=== PATIENT | male | born 1950 | race Caucasian/White ===

== ENCOUNTER 2022-09-24 09:46 | Inpatient (IN) ==
--- NOTE | 2022-09-03 12:51 | PAT Medication Instructions ---
Medication Instructions Date of Service September 03, 2022 Home Medications acetaminophen 325 mg capsule (Tylenol) 500 mg PO UD PRN alogliptin 25 mg tablet 25 mg PO QAM aspirin 325 mg tablet (Magnus Aspirin) 325 mg PO QAM cholecalciferol (vitamin D3) 25 mcg (1,000 unit) tablet 50 mcg PO QDL coenzyme Q10 100 mg capsule 100 mg PO QAM duloxetine 30 mg capsule,delayed release sprinkle 90 mg PO QDL metformin 1,000 mg tablet 1,000 mg PO BID metoprolol tartrate 25 mg tablet 12.5 mg PO BID oxycodone 5 mg tablet 10 mg PO Q6H PRN pregabalin 75 mg capsule (Lyrica) 225 mg PO BID rosuvastatin 40 mg tablet 40 mg PO HS terazosin 2 mg capsule 4 mg PO HS tizanidine 2 mg capsule 2 mg PO UD PRN docusate sodium 100 mg tablet 100 mg PO QAM empagliflozin 10 mg tablet 10 mg PO QAM lisinopril 10 mg tablet 10 mg PO UD PRN STOP 3 days before surgery empagliflozin 10 mg tablet 10 mg PO QAM Continue as directed duloxetine 30 mg capsule,delayed release sprinkle 90 mg PO QDL (do not take day of surgery) ASK your prescriber and surgeon aspirin 325 mg tablet (Magnus Aspirin) 325 mg PO QAM STOP taking 2 weeks before surgery coenzyme Q10 100 mg capsule 100 mg PO QAM DO NOT take the morning of surgery alogliptin 25 mg tablet 25 mg PO QAM cholecalciferol (vitamin D3) 25 mcg (1,000 unit) tablet 50 mcg PO QDL metformin 1,000 mg tablet 1,000 mg PO BID docusate sodium 100 mg tablet 100 mg PO QAM lisinopril 10 mg tablet 10 mg PO UD PRN Take morning of surgery With a small sip of water, OTHERWISE NOTHING TO EAT OR DRINK AFTER MIDNIGHT: acetaminophen 325 mg capsule (Tylenol) 500 mg PO UD PRN(if needed) metoprolol tartrate 25 mg tablet 12.5 mg PO BID oxycodone 5 mg tablet 10 mg PO Q6H PRN(if needed) pregabalin 75 mg capsule (Lyrica) 225 mg PO BID Take evening before surgery metformin 1,000 mg tablet 1,000 mg PO BID metoprolol tartrate 25 mg tablet 12.5 mg PO BID oxycodone 5 mg tablet 10 mg PO Q6H PRN(if needed) pregabalin 75 mg capsule (Lyrica) 225 mg PO BID rosuvastatin 40 mg tablet 40 mg PO HS terazosin 2 mg capsule 4 mg PO HS tizanidine 2 mg capsule 2 mg PO UD PRN(if needed) Other Notes If you have any questions please call us at [phone] or [phone] or [phone] or [phone]
--- NOTE | 2022-09-06 11:00 | Anesthesiology Consultation ---
Date of Service September 06, 2022 Assessment & Plan (1) Encounter for pre-operative examination: Plan - optimization form sent to PCP regarding abnormal pre-op testing. PAT testing to be faxed to PCP. - cardiology pre-op evaluation 09/07/22 [facility]. - PCP pre-op evaluation 09/08/22 [facility]. He was advised to contact PCP office today ahead of upcoming appointment regarding symptoms and to call 911 for any new, changed or worsened symptoms. Patient and his verbalized understanding and agreement, denied questions or concerns. - check BSG am DOS. Chart Review Chart Review: Pending: Refer to Additional Notes / Consult section and Patient seen in Pre Admission Testing Teaching & Discussion Pre-Anesthesia Teaching/Discussion Notes: Instructed NPO after midnight before surgery, except medications with 15 cc of water. Medication instructions provided according to the PAT guidelines. History Surgery Operation Date: 09/20/22 10:05 Proposed Procedures p L3-L5 Decompression and Fusion, Spinal Cord Monitoring - Camron Herman, Height/Weight Height: 5 ft 7 in Weight: 73.6 kg Allergies Allergy/AdvReac Type Severity Reaction Status Date / Time adhesive tape Allergy Unknown unknown Verified 09/03/22 10:48 type of tape - welt carisoprodol [From Soma] Allergy Unknown pt unsure Verified 09/03/22 10:48 - doesn't remember cyclobenzaprine Allergy Unknown GI SYMPTOMS Verified 09/03/22 10:48 epinephrine Allergy Unknown SHORTNESS Verified 09/03/22 10:48 OF BREATH - see notes gemfibrozil Allergy Unknown pt doesn't Verified 09/03/22 10:48 remember gabapentin AdvReac Unknown pt doesn't Verified 09/03/22 10:48 remember ropinirole AdvReac Unknown pt doesn't Verified 09/03/22 10:48 remember Medications Home Medications Medication Instructions Recorded Confirmed Last Taken acetaminophen 325 mg capsule 500 mg PO UD PRN Pain 05/08/20 09/03/22 Unknown (Tylenol) alogliptin 25 mg tablet 25 mg PO QAM 05/08/20 09/03/22 Unknown aspirin 325 mg tablet (Magnus 325 mg PO QAM 05/08/20 09/03/22 Unknown Aspirin) cholecalciferol (vitamin D3) 25 50 mcg PO QDL 05/08/20 09/03/22 Unknown mcg (1,000 unit) tablet coenzyme Q10 100 mg capsule 100 mg PO QAM 05/08/20 09/03/22 Unknown duloxetine 30 mg capsule,delayed 90 mg PO QDL 05/08/20 09/03/22 Unknown release sprinkle metformin 1,000 mg tablet 1,000 mg PO BID 05/08/20 09/03/22 Unknown metoprolol tartrate 25 mg tablet 12.5 mg PO BID 05/08/20 09/03/22 Unknown oxycodone 5 mg tablet 10 mg PO Q6H PRN Pain 05/08/20 09/03/22 Unknown pregabalin 75 mg capsule (Lyrica) 225 mg PO BID 05/08/20 09/03/22 Unknown rosuvastatin 40 mg tablet 40 mg PO HS 05/08/20 09/03/22 Unknown terazosin 2 mg capsule 4 mg PO HS 05/08/20 09/03/22 Unknown tizanidine 2 mg capsule 2 mg PO UD PRN Sleep 05/08/20 09/03/22 Unknown docusate sodium 100 mg tablet 100 mg PO QAM 09/03/22 09/03/22 Unknown empagliflozin 10 mg tablet 10 mg PO QAM 09/03/22 09/03/22 Unknown lisinopril 10 mg tablet 10 mg PO UD PRN blood pressure 09/03/22 09/03/22 Unknown Past Medical History Medical History (Updated 09/06/22 @ 11:31 by Priya Donovan PA-C) BPH (benign prostatic hyperplasia) CAD (coronary artery disease) s/p CABG Diabetes NIDDM Elevated cholesterol Fibromyalgia History of colon polyps mentioned but didn't remove anything per pt - hx colonoscopy 6 mon ago History of myocardial infarction History of skin cancer multiple sites: anterior and posterior scalp, above left eyebrow [place] (hard of hearing) HTN (hypertension) controlled, stable per pt Lumbar radiculopathy Lumbar spinal stenosis Moderate at L3-L4 Severe at L4-5 Memory problem PT REPORTS HAS POOR MEMORY / COMMUNICATION EFFECTIVE FOR PAT PHONE CALL DENIES HX NEUROLOGIC DX SOB (shortness of breath) on exertion ambulates on flat surfaces due to back dysfunction, denies SOB with usual activities Patient denies h/o stroke, seizures, heart attack, blood clots or blood transfusions. Exercise / Class Metabolic Activity III < 4 Walking/Shop/Light housework (denies CP or SOB with usual activities) Past Family History Family History Mother Family history of diabetes mellitus Uncle Family history of diabetes mellitus Grandmother Family history of diabetes mellitus Past Surgical History Surgical History History of appendectomy History of cardiac cath 4 YR AGO...HX ID...CATH...CABG History of colonoscopy History of endoscopy History of tonsillectomy Hx of CABG Past Anesthesia History No Hx of Anesthesia Complications and Other (grandmother passed during an operation-pt notes poorly controlled DM and obesity hx) History of PONV No Hx of PONV and Hx of Motion Sickness Social History Smoking Status: Never smoker Do You Dip or Chew Tobacco: No Hx Alcohol Use: Yes (rare, several times a year) Hx Substance Use: No substance use type: does not use Review of Systems Pt states that today feels slight fatigue, slight nausea, occasional slight ( rated 1/10) right lower abdominal discomfort he cannot describe or select when given examples; states he has had similar episodes in the past similar to food poisoning. Denies any pain radiation, chest discomfort, shortness of breath, palpitations, vomiting, diaphoresis, dizziness, lightheadedness, fever, chills, headache, visual changes, numbness, or change in chronic LE weakness, jaw pain, reflux, heartburn, diarrhea, constipation, dysuria, hematuria, dyspnea, or change in chronic back pain. Patient denies snoring, witnessed apneas, cough, or wheezing. Physical Exam Vital Signs Vitals BP 152/89 P 92 TEMP 98.8 SP02 96% on RA RESP 17 Physical Resting in chair in NAD, alert and oriented, speaking clearly in full sentences without difficulty; nondiaphoretic Full cervical extension range of motion without pain TMD 3.5 finger breadths Mallampati Score 2 Dentition: full upper denture and lower partial; denies chipped or loose teeth Lungs: normal respiratory effort. Clear throughout to auscultation, no adventitious breath sounds Abdomen: normal in appearance, no distention or skin discoloration; normal bowel sounds throughout; supple, nontender to light palpation; 1/10 reported tenderness without evident discomfort to deep palpation of RLQ, no rebound tenderness Cardiac: regular rate and rhythm, no murmurs noted Carotid arteries: negative bruit bilat Lab Results Anesthesia Preop Results Results Anesthesia Widget: WBC 3.25 K/ul (4.8-10.8) L 09/06/22 Hgb 12.7 g/dl (14.0-18.0) L 09/06/22 Hct 39.1 % (40.1-51.0) L 09/06/22 Plt 130 K/uL (130-400) 09/06/22 Na 141 mmol/L (136-145) 09/06/22 K 3.6 mmol/L (3.5-5.1) 09/06/22 Cl 105 mmol/L (98-107) 09/06/22 CO2 28 mmol/L (21-32) 09/06/22 BUN 13 mg/dl (6-23) 09/06/22 Creat 0.86 mg/dl (0.6-1.4) 09/06/22 Glucose Level 155 mg/dl (70-99(Fasting)) H 09/06/22 PT 10.8 Seconds (9.0-12.0) 09/06/22 PTT 28.4 Seconds (21.0-31.0) 09/06/22 INR 1.0 (0.9-1.1) 09/06/22 HA1c 7.4 % (4.5-5.6) H 09/06/22 Urine Color Yellow 09/06/22 Urine Appearance Clear (Clear) 09/06/22 Urine pH 7.0 (4.5-7.5) 09/06/22 Urine Specific [place] 1.038 (1.000-1.030) H 09/06/22 Urine Protein 1+ (Negative) H 09/06/22 Urine Glucose (UA) 3+ (Negative) H 09/06/22 Urine Ketones Trace (Negative) H 09/06/22 Urine Blood Negative (Negative) 09/06/22 Urine Nitrite Negative (Negative) 09/06/22 Urine Bilirubin Negative (Negative) 09/06/22 Urine Urobilinogen Negative (Negative) 09/06/22 Urine Leukocyte Esterase Negative (Negative) 09/06/22 Urine WBC (Auto) 1-5 /hpf (0-5) 09/06/22 Urine RBC (Auto) 0-4 /hpf (0-4) 09/06/22 Urine Hyaline Casts (Auto) 0 /lpf (0-5) 09/06/22 Urine Epithelial Cells (Auto) 10-20 /lpf (0-5) H 09/06/22 Urine Bacteria (Auto) Negative (Negative) 09/06/22 Blood Type O Positive 09/06/22 Antibody Screen NEGATIVE 09/06/22 Testing Electrocardiogram Date: 09/06/22 NSR, rate 89 bpm Chest X-Ray Date: 09/06/22 No acute process. Echocardiogram Date: 02/26/19 EF 50-55% Mild tricuspid regurgitation Mildly thickened aortic valve, trivial aortic insufficiency Stress Test Date: 04/03/19 Exercise METS 4.6 MPHR 88% Negative for ischemia COVID-19 Risk Screen Screening Information COVID-19 Screen Date: 09/06/22 Exposure 21 Days Family/Household +COVID Last 21 Days: No Exposure 10 Days Any COVID Exposure Last 10 Days: No Symptoms Last 10 Days Experienced COVID Sx Last 10 Days: Yes + COVID 0-90 Days COVID + in Last 0-90 Days: No
[~2022-09-24 09:46] MED LIST: ACETAMINOPHEN 500 MG TAB PO SCH; ALLERGY Noted to ORDERED Medication SCH; CeleBREX 200 MG CAP PO SCH; HYDROmorphone INJ 2 MG/ML SYR/VIAL ONE; LR 15ML/HR IV SCH; MIDAZOLAM HCL 1 MG/ML 2ML VIAL ONE; ONDANSETRON INJ 2 MG/ML 2 ML VIAL ONE; PHENYLEPHRINE HCL 10 MG/ML VIAL ONE; ceFAZolin 2000MG 2,000 MG/15 ML SYR IV SCH; fentaNYL citrate 100 MCG/2 ML VIAL ONE
--- NOTE | 2022-09-24 09:46 | History & Physical Bridge Note ---
Date of Service September 24, 2022 History & Physical Bridge Note I have examined the patient, reviewed the History & Physical and in the interval since the performance of the History & Physical I have noted the following changes of clinical significance: no changes noted
--- NOTE | 2022-09-24 09:47 | History & Physical Report ---
Date of Service September 24, 2022 Assessment & Plan (1) Neurogenic claudication due to lumbar spinal stenosis: Plan: L3-L5 decompression and fusion, possible L5-S1 History of Present Illness Chief Complaint: Back and bilateral leg pain Primary Care Provider: Ramirez Martinez DO This is a 72-year-old male who presents with chronic persistent back and leg pain. After extensive course of nonoperative care is here for surgical intervention. Allergies Allergy/AdvReac Type Severity Reaction Status Date / Time adhesive tape Allergy Unknown unknown Verified 09/03/22 10:48 type of tape - welt carisoprodol [From Soma] Allergy Unknown pt unsure Verified 09/03/22 10:48 - doesn't remember cyclobenzaprine Allergy Unknown GI SYMPTOMS Verified 09/03/22 10:48 epinephrine Allergy Unknown SHORTNESS Verified 09/03/22 10:48 OF BREATH - see notes gemfibrozil Allergy Unknown pt doesn't Verified 09/03/22 10:48 remember gabapentin AdvReac Unknown pt doesn't Verified 09/03/22 10:48 remember ropinirole AdvReac Unknown pt doesn't Verified 09/03/22 10:48 remember Home Medications Medication Instructions Recorded Confirmed Type acetaminophen 325 mg capsule 500 mg PO UD PRN Pain 05/08/20 09/03/22 History (Tylenol) alogliptin 25 mg tablet 25 mg PO QAM 05/08/20 09/03/22 History aspirin 325 mg tablet (Magnus 325 mg PO QAM 05/08/20 09/03/22 History Aspirin) cholecalciferol (vitamin D3) 25 50 mcg PO QDL 05/08/20 09/03/22 History mcg (1,000 unit) tablet coenzyme Q10 100 mg capsule 100 mg PO QAM 05/08/20 09/03/22 History duloxetine 30 mg capsule,delayed 90 mg PO QDL 05/08/20 09/03/22 History release sprinkle metformin 1,000 mg tablet 1,000 mg PO BID 05/08/20 09/03/22 History metoprolol tartrate 25 mg tablet 12.5 mg PO BID 05/08/20 09/03/22 History oxycodone 5 mg tablet 10 mg PO Q6H PRN Pain 05/08/20 09/03/22 History pregabalin 75 mg capsule (Lyrica) 225 mg PO BID 05/08/20 09/03/22 History rosuvastatin 40 mg tablet 40 mg PO HS 05/08/20 09/03/22 History terazosin 2 mg capsule 4 mg PO HS 05/08/20 09/03/22 History tizanidine 2 mg capsule 2 mg PO UD PRN Sleep 05/08/20 09/03/22 History docusate sodium 100 mg tablet 100 mg PO QAM 09/03/22 09/03/22 History empagliflozin 10 mg tablet 10 mg PO QAM 09/03/22 09/03/22 History lisinopril 10 mg tablet 10 mg PO UD PRN blood pressure 09/03/22 09/03/22 History Past Med/Surg History Medical History (Updated 09/24/22 @ 09:47 by Camron Herman DO) BPH (benign prostatic hyperplasia) CAD (coronary artery disease) s/p CABG x 2017 Diabetes NIDDM Elevated cholesterol Fibromyalgia History of colon polyps mentioned but didn't remove anything per pt - hx colonoscopy 6 mon ago History of myocardial infarction History of skin cancer multiple sites: anterior and posterior scalp, above left eyebrow [place] (hard of hearing) HTN (hypertension) controlled, stable per pt Lumbar radiculopathy Lumbar spinal stenosis Moderate at L3-L4 Severe at L4-5 Memory problem PT REPORTS HAS POOR MEMORY / COMMUNICATION EFFECTIVE FOR PAT PHONE CALL DENIES HX NEUROLOGIC DX SOB (shortness of breath) on exertion ambulates on flat surfaces due to back dysfunction, denies SOB with usual activities Surgical History History of appendectomy History of cardiac cath 4 YR AGO...HX NH...CATH...CABG History of colonoscopy History of endoscopy History of tonsillectomy Hx of CABG Family History Mother Family history of diabetes mellitus Uncle Family history of diabetes mellitus Grandmother Family history of diabetes mellitus Social History Smoking Status: Unknown if ever smoked Do You Dip or Chew Tobacco: No; Hx Alcohol Use: Yes (rare, several times a year) Hx Substance Use: No Preferred Language: Uzbek Communication Ability: Effective Visual Impairment: No Limitations Hearing Ability: Normal Pediatric Oncology Nurse Required: No Beliefs That Will Affect Care: None marital status: Current Living Situation: Spouse current occupational status: retired Other Information That Helps Us Care for You: No Feels Safe at Home: Yes Assistive Devices: Cane, Denture - Upper, Denture - Lower and Glasses Physical Exam Physical Exam: Patient is alert and oriented Heart regular rhythm Lungs clear
[2022-09-24] MEDS ORDERED: BUPIVACAINE/EPINEPHRINE 0.25% 1:200,000 30 ML VIAL ONE (10:07)
[2022-09-24] MEDS ORDERED: ceFAZolin 330 MG/ML 1 GM VIAL ONE (10:07)
[2022-09-24] MEDS ORDERED: FLOSEAL HEMOSTATIC MATRIX 10ML TOP ONE (11:59)
[2022-09-24] MEDS ORDERED: fentaNYL citrate 100 MCG/2 ML VIAL ONE ×2 (12:33→14:12)
[2022-09-24] MEDS ORDERED: METOPROLOL TARTRATE 1 MG/ML VIAL IV ONE (13:23)
[2022-09-24] MEDS ORDERED: ESMOLOL HCL INJ 10 MG/ML 10ML VIAL IV ONE (13:23)
--- NOTE | 2022-09-24 13:26 | Operative Report ---
Post Operative Report Pre & Post Diagnosis Operation Date: 09/24/22 11:05 Pre-Op Diagnosis: Lumbar spinal stenosis with neurogenic claudication Post-Op Diagnosis: Same I identified the patient and participated in the time-out.: Yes Procedure Operation Date: 09/24/22 11:05 Actual Procedures #1 lumbar decompression with bilateral medial facetectomies and foraminotomies L2-L3, L3-L4 and L4-L5. #2 posterior spinal fusion L3-L4 L4-5. #3 placement posterior instrumentation L3-L4 L4-5. #4 interbody fusion L3-L4 L4-5. #5 placement of Spira 13 x 26 mm cage at L3-L4 and 14 x 26 mm cage at L4-5. #6 placement locally harvested morselized autograft in the posterior gutters. #7 placement of I factor combined with V toss interbody space and posterior lateral gutters. Surgeon Camron Herman DO Plastic Surgery Assistant Gabriel López Estimated Blood Loss 250 Findings Consistent with Post-Op Diagnosis Specimens None Indications This is a 72-year-old male who presents above-mentioned diagnosis and failing since course of nonoperative care is here for surgical invention. Description of Procedure Patient was met with identified informed consent obtained. Patient was then taken to the operative suite underwent a patient placed in a prone position on the [place] table top [place] frame. All bony prominences well-padded eyes inspected to ensure no external pressure placed upon the. This point the lumbar spine was prepped and draped in normal sterile fashion. Sharp dissection with t he assistance of Bovie cautery was performed down to and exposing the lamina and transverse processes of L3-L4 and L5 bilaterally. From caudal to cephalad fashion a complete laminectomy of L4 L3 and partial management of L2 was performed including bilateral medial facetectomies and foraminotomies addressing severe spinal stenosis. Pedicle screws then placed in L3-L4-L5 bilaterally with assistance of fluoroscopy and appropriate sized marco placed. By way of a transit foraminal approach on the left complete discectomy of L4-5 was performed endplates curetted to subcortically bone and a 14 x 26 mm spiral cage with I factor tapped in position. Then proceeded to L3-L4 to get by way of a transfemoral approach and left complete discectomy performed endplates curetted to subcortically bone and a 13 x 26 mm spiral cage with I factor tapped the position. The rods were then locked into final position bilaterally. Transverse processes of L3 L4-5 burred to subcortical bleeding bone. I factor m bhupinder V toss and locally harvested morselized autograft was placed in the posterior gutters. 15 round RUTH drain inserted. Incision was then closed with 1 Vicryl fascia 2-0 Vicryl subcutaneously and 4 Monocryl for final skin closure. Steri-Strip sterile dressings placed. Patient waken taken to PACU in stable condition. Please note spinal cord monitoring was utilized at the procedure no changes noted. Lastly Gabriel López was present at the entire surgery involved the patient positioning complex portions of the surgery and final skin closure. I attest to the content of the Intraoperative Record and any orders documented therein. Any exceptions are noted below.
[2022-09-24] MEDS ORDERED: FLUMAZENIL 0.1 MG/1 ML 10 ML VIAL IV PRN (14:09)
[2022-09-24] MEDS ORDERED: ePHEDrine sulfate 50 MG/ML AMP IV PRN (14:09)
[2022-09-24] MEDS ORDERED: NALOXONE HCL 0.4 MG/1 ML VIAL/CARP IV PRN ×2 (14:09→15:31)
[2022-09-24] MEDS ORDERED: ATROPINE SULFATE 0.1 MG/ML 10ML SYR IV PRN (14:09)
[2022-09-24] MEDS ORDERED: LABETALOL HCL IV 5 MG/ML 20ML IV PRN (14:09)
[2022-09-24] MEDS ORDERED: ONDANSETRON INJ 2 MG/ML 2 ML VIAL IV PRN ×2 (14:09→15:31)
[2022-09-24] MEDS ORDERED: PROMETHAZINE HCL 12.5 MG in SODIUM CHLORIDE 0.9% 50 ML IV PRN ×2 (14:09→15:31)
[2022-09-24] MEDS: fentaNYL citrate 100 MCG/2 ML VIAL IV PRN ×4 (14:14→14:32)
[2022-09-24 14:26] LABS: Hematocrit (blood only) 36.7 % (40.1-51.0); Hemoglobin 12.2 g/dl (14.0-18.0)
--- NOTE | 2022-09-24 14:27 | Fluoroscopy Report ---
FL lumbar spine 2-3V CLINICAL HISTORY: L3-5 DFI TECHNIQUE: 2 views were obtained with the C-arm in the OR with the above procedure. Total fluoroscopy time was 26 seconds. Comparison: Comparison is made to MRI lumbar spine 02/08/2022 FINDINGS/IMPRESSION: Intraoperative images were obtained of L3-L5 decompression and fusion. Please correlate with intraoperative fluoroscopy and operative report. ACT 112: Negative or not required by law. Electronically signed by: Abad Carbajal M.D. 09/24/2022 2:25 PM
[2022-09-24] MEDS: HYDROmorphone INJ 1 MG/ML SYRINGE IV PRN ×6 (14:35→15:03)
--- NOTE | 2022-09-24 15:02 | Anesthesiology Progress Note ---
Date of Service September 24, 2022 Anesthesia Post Procedure Vital Signs Vital Signs: Temp Pulse Resp BP BP Pulse Ox O2 Del Method 09/24/22 14:50 83 20 156/87 H 94 Room Air 09/24/22 14:40 80 12 162/88 H 95 Room Air 09/24/22 14:30 85 14 159/92 H 95 Room Air 09/24/22 14:20 80 14 179/94 H 97 Room Air 09/24/22 14:10 83 15 159/96 H 95 Oxymask 09/24/22 14:00 83 12 185/95 H 99 Oxymask 09/24/22 13:52 36.3 C L 96 H 18 157/97 H 99 Oxymask 09/24/22 10:06 37.0 C 84 20 180/101 H 98 Room Air O2 Flow Rate 09/24/22 14:50 09/24/22 14:40 09/24/22 14:30 09/24/22 14:20 09/24/22 14:10 5 09/24/22 14:00 5 09/24/22 13:52 5 09/24/22 10:06 Pain Intensity Lower Back: Pain Intensity: 5 Transfer of Care Handoff Completed per policy Notes Mental Status: alert / awake / arousable Patient Amnestic to Procedure: Yes Nausea / Vomiting: adequately controlled Pain: adequately controlled Airway Patency, RR, SpO2: stable & adequate BP & HR: stable & adequate Hydration State: stable & adequate Anesthetic Complications: no major complications apparent
[2022-09-24] MEDS ORDERED: HYDROmorphone INJ 1 MG/ML SYRINGE IV PRN (15:31)
[2022-09-24] MEDS ORDERED: SOD PHOSPHATE/SOD BIPHOSPHATE ENEMA 132 ML BTL PR PRN (15:31)
[2022-09-24] MEDS ORDERED: LORazepam 0.5 MG in SYRINGE 0 ML IV PRN (15:31)
[2022-09-24] MEDS ORDERED: MAGNESIUM HYDROXIDE SUSP 30 ML UDC PO PRN (15:31)
[2022-09-24] MEDS ORDERED: HYDROmorphone INJ 0.5 MG/0.5 ML SYR IV PRN (15:31)
[2022-09-24] MEDS ORDERED: diphenhydrAMINE Capsule 25 MG CAP PO PRN (15:31)
[2022-09-24] MEDS ORDERED: FAMOTIDINE 20 MG TAB PO PRN (15:31)
[2022-09-24] MEDS ORDERED: tiZANidine HCL 4 MG TABLET PO PRN (15:31)
[2022-09-24] MEDS ORDERED: ALUMINUM/MAGNESIUM SUSP 30 ML UDC PO PRN (15:31)
[2022-09-24] MEDS ORDERED: METOCLOPRAMIDE HCL INJ 5 MG/ML 2 ML VIAL IV PRN (15:31)
[2022-09-24] MEDS ORDERED: hydrOXYzine HCl 25 MG TAB PO PRN (15:31)
[2022-09-24] MEDS ORDERED: ACETAMINOPHEN 1,000 MG/100 ML VIAL IV PRN (15:31)
[2022-09-24] MEDS ORDERED: lisinopril 10 MG TAB PO PRN (15:31)
[2022-09-24] MEDS ORDERED: bisacodyL 10 MG SUPP PR PRN (15:31)
[2022-09-24] MEDS ORDERED: PHARMACY GLYCEMIC MGMT CONSULT PRN (15:31)
[2022-09-24] MEDS ORDERED: LORazepam 0.5 MG TAB PO PRN (15:31)
[2022-09-24] MEDS ORDERED: traMADol HCL 50 MG TABLET PO PRN (15:31)
[2022-09-24] MEDS ORDERED: ONDANSETRON 4 MG OD TAB PO PRN (15:31)
[2022-09-24] MEDS: SODIUM CHLORIDE 0.9% 1000ML 1,000 ML IV SCH (16:10)
--- NOTE | 2022-09-24 16:33 | Pharmacy Report ---
Pharmacy Glycemic Short Note 2 - Date of Service September 24, 2022 - Glycemic Short BSG Results (Last 24 hours): 09/24/22 09/24/22 10:15 13:59 POC Glucose 171 H 207 H OUTPATIENT ANTIDIABETIC REGIMEN: * Alogliptan 25mg, metformin 1000mg BID ASSESSMENT: 09/24 * Patient is POD #0 lumbar decompression/spinal fusion. Hx HTN, [place], CAD, skin cancer. * Dexamethasone 6mg x3 days scheduled starting tomorrow * Sugars currently slightly elevated at 171-207 * Will start basal insulin (0.2mg/kg) 15 units at bedtime and bolus insulin as below * Will also add 0000 and 0400 glucose checks for tighter control PLAN FOR INPATIENT GLYCEMIC CONTROL: * Hold outpatient oral diabetes medications * Basal insulin * Lantus 15 units SQ HS * Bolus insulin * NovoLog per scale ACHS or Q6hrs while NPO * Goal Range: Low 110 mg/dL - High 140 mg/dL * Correction Factor: 20 mg/dL/unit * Nutritional / Prandial insulin per carb ratio of 1 unit per 7 grams CHO consumed
--- NOTE | 2022-09-24 16:37 | Hospitalist Consultation ---
Date of Consultation September 24, 2022 Assessment & Plan (1) Neurogenic claudication due to lumbar spinal stenosis: - Pain management, bowel regimen and DVT ppx per the primary team - PT/OT consults - Follow am CBC to monitor for acute blood loss: HGB= 12.2 today, on 09/06 was 12.7 (2) CAD (coronary artery disease): - Resume asa within 24 hrs if ok with primary team for hx of CAD s/p triple bypass surgery (3) HTN (hypertension): - Last Echo from 11/08/21, EF 55-60%, Grade I diastolic dysfunction,Mild cLVH, Mild mitral regurgitation, Mild aortic insufficiency, Mild tricuspid regurgitation - 3V CABG on 07/24/2018 using ZHANG to LAD SVG to D1 and SVG to RCA -stress echo 09/17/22: pharmacologic, Normal nuclear part of lexiscan nuclear stress test, No evidence of ischemia or infarction, Normal LVEF and wall motion, EF 55% - Continue metoprolol tartrate 12.5, will hold lisinopril as this is ordered as needed for blood pressure as outpatient, would discontinue entirely if not needed or start low daily dose if BP elevated during admission (4) Elevated cholesterol: -May continue rosuvastatin (5) Diabetes: -Last A1c was 7.4 on 09/06/2022 -ISS with Accu-Cheks ACHS -Holding alogliptin, metformin, Jardiance -Continue heart healthy diabetic diet DVT ppx: - teds, scds, no chemical anticoagulation in the setting of acute back surgery, resume asa 325 per surgery for CAD CODE: Full code Dispo: From home, likely to remain in the hospital x 1-2 days Thank you for involving us in the care of Mr. Boone If you have any questions or concerns please do not hesitate to call. At this time medicine will follow along. Supervising Physician Co-Signing Physician Notes I have seen and examined the patient and have discussed the case with the provider above. I agree with the assessment and plan as stated. 72 yo diabetic man s/p spine surgery for spinal stenosis. He reports that his pain is not controlled and is a referred pain in his hips, and is 8/10. He took oxycodone 3 hours ago (10mg) and just took APAP 1000mg. He is not getting relief, so will give some additional dilaudid at this time. He reports some burning with his catheter, but it is not irritating him so much that he has to have it out. Physical exam is unremarkable and he denies sensation loss in his lower extremities which are warm and well perfused. Cont plan as above and recommend resuming aspirin in setting of prior CABG but would only give him 81mg. Pharmacy is managing his insulin. We will continue to follow his progress daily. Thank you for this consultation. DO Jose History of Present Illness Reason for Consultation: Medical management Requesting Physician: Dr. Herman Attending Physician: Camron Herman DO History of Present Illness This is a 72 yo M with PMhx of CAD s/p 3 vessel CABG 07/2018, Grade I diastolic dysfunction, HTN, HLD, DM II who underwent elective lumbar spinal stenosis with neurogenic claudication with spinal fusion decompression of L2-L5 by Dr. Herman on 09/24/22. Pt is seen at bedside with his . He feels well overall, reports some dull back pain. He denies any numbness or tingling into the lower parts of his legs, can move his toes. Pt has been tolerating sips of water at bedside without nausea. He mentions having some "motion sickness" with riding the elevator and coming up to the room. Pt denies any nausea presently. Last BM was this morning, and has not urinated since having the procedure. [facility] and does not know all of them by name. Allergies Allergy/AdvReac Type Severity Reaction Status Date / Time adhesive tape Allergy Unknown unknown Verified 09/24/22 10:29 type of tape - welt carisoprodol [From Soma] Allergy Unknown pt unsure Verified 09/24/22 10:29 - doesn't remember cyclobenzaprine Allergy Unknown GI SYMPTOMS Verified 09/24/22 10:29 epinephrine Allergy Unknown SHORTNESS Verified 09/24/22 10:29 OF BREATH - see notes gemfibrozil Allergy Unknown pt doesn't Verified 09/24/22 10:29 remember gabapentin AdvReac Unknown pt doesn't Verified 09/24/22 10:29 remember ropinirole AdvReac Unknown pt doesn't Verified 09/24/22 10:29 remember Home Medications Medication Instructions Recorded Confirmed Type acetaminophen 325 mg capsule 500 mg PO UD PRN Pain 05/08/20 09/24/22 History (Tylenol) alogliptin 25 mg tablet (Nesina) 25 mg PO QAM 05/08/20 09/24/22 History aspirin 325 mg tablet (Magnus 325 mg PO QAM 05/08/20 09/24/22 History Aspirin) cholecalciferol (vitamin D3) 25 50 mcg PO QDL 05/08/20 09/24/22 History mcg (1,000 unit) tablet coenzyme Q10 100 mg capsule 100 mg PO QAM 05/08/20 09/24/22 History duloxetine 30 mg capsule,delayed 90 mg PO QDL 05/08/20 09/24/22 History release sprinkle (Drizalma Sprinkle) metformin 1,000 mg tablet 1,000 mg PO BID 05/08/20 09/24/22 History metoprolol tartrate 25 mg tablet 12.5 mg PO BID 05/08/20 09/24/22 History oxycodone 5 mg tablet 10 mg PO Q6H PRN Pain 05/08/20 09/24/22 History pregabalin 75 mg capsule (Lyrica) 225 mg PO BID 05/08/20 09/24/22 History rosuvastatin 40 mg tablet 40 mg PO HS 05/08/20 09/24/22 History terazosin 2 mg capsule 4 mg PO HS 05/08/20 09/24/22 History tizanidine 2 mg capsule 2 mg PO UD PRN Sleep 05/08/20 09/24/22 History docusate sodium 100 mg tablet 100 mg PO QAM 09/03/22 09/24/22 History empagliflozin 10 mg tablet 10 mg PO QAM 09/03/22 09/24/22 History (Jardiance) lisinopril 10 mg tablet 10 mg PO UD PRN blood pressure 09/03/22 09/24/22 History Patient History Medical History BPH (benign prostatic hyperplasia) CAD (coronary artery disease) s/p CABG x 2017 Diabetes NIDDM Elevated cholesterol Fibromyalgia History of colon polyps mentioned but didn't remove anything per pt - hx colonoscopy 6 mon ago History of myocardial infarction History of skin cancer multiple sites: anterior and posterior scalp, above left eyebrow CHITINA (hard of hearing) HTN (hypertension) controlled, stable per pt Lumbar radiculopathy Lumbar spinal stenosis Moderate at L3-L4 Severe at L4-5 Memory problem PT REPORTS HAS POOR MEMORY / COMMUNICATION EFFECTIVE FOR PAT PHONE CALL DENIES HX NEUROLOGIC DX SOB (shortness of breath) on exertion ambulates on flat surfaces due to back dysfunction, denies SOB with usual activities Surgical History History of appendectomy History of cardiac cath 4 YR AGO...HX [place]...CATH...CABG History of colonoscopy History of endoscopy History of tonsillectomy Hx of CABG Family History Mother Family history of diabetes mellitus Uncle Family history of diabetes mellitus Grandmother Family history of diabetes mellitus Social History Smoking Status: Unknown if ever smoked Do You Dip or Chew Tobacco: No; Hx Alcohol Use: Yes (rare, several times a year) Hx Substance Use: No Preferred Language: Danish Communication Ability: Effective Visual Impairment: No Limitations Hearing Ability: Normal [employer] Required: No Beliefs That Will Affect Care: None marital status: Current Living Situation: Spouse current occupational status: retired Other Information That Helps Us Care for You: No Feels Safe at Home: Yes Assistive Devices: Cane, Denture - Upper, Denture - Lower and Glasses Review of Systems Review of Systems: Constitutional: No fever, sweats or chills Eyes: No diplopia, no worsening or blurred vision ENT: normal hearing, no trouble swallowing Respiratory: No cough, sputum, dyspnea at rest or on exertion Cardiovascular: No chest pain, tightness or palpitations Abdomen: No pain, nausea, vomiting, diarrhea or constipation Back: dull achey pain Musculoskeletal: No joint pain, calf pain, swelling Neurologic: No weakness, numbness/tingling, or balance problems Psychiatric: No anxiety or depression Skin: No rash or itch Physical Exam Physical Exam: General: awake, alert, no apparent distress Head: Normocephalic, atraumatic ENT: PERRL, EOMI, no pharyngeal exudate, mucous membranes moist Chest: Clear to auscultation, on room air, no adventitious breath sounds Cardiac: Regular rate and rhythm, no murmur, no JVD, normal peripheral pulses, good capillary refill Abdominal: NABS x 4 quadrants, soft, nondistended, nontender to palpation, no rebound or guarding Back: RUTH drain in place draining serosangionous bloody fluids Extremities: Normal inspection, no peripheral edema or erythema, calfs nontender to palpation, can move toes and legs, no sensory deficits Psych: Normal mood and affect Neuro: AAO x 3, no motor deficits, speech is clear, no peripheral sensory deficits Results & Data Results & Data ([facility]) Vital Signs (Past 12 Hours) Vital Signs Temp Pulse Pulse Resp BP BP Pulse Ox 09/24/22 16:24 36.6 C 87 18 154/76 H 96 09/24/22 16:01 37.1 C 78 16 151/83 H 94 09/24/22 15:31 37.1 C 84 16 158/93 H 96 09/24/22 15:00 78 20 150/95 H 95 09/24/22 14:50 83 20 156/87 H 94 09/24/22 14:40 80 12 162/88 H 95 09/24/22 14:30 85 14 159/92 H 95 09/24/22 14:20 80 14 179/94 H 97 09/24/22 14:10 83 15 159/96 H 95 09/24/22 14:00 83 12 185/95 H 99 09/24/22 13:52 36.3 C L 96 H 18 157/97 H 99 09/24/22 10:06 37.0 C 84 20 180/101 H 98 O2 Del Method O2 Flow Rate 09/24/22 16:24 Room Air 09/24/22 16:01 Room Air 09/24/22 15:31 Room Air 09/24/22 15:00 Room Air 09/24/22 14:50 Room Air 09/24/22 14:40 Room Air 09/24/22 14:30 Room Air 09/24/22 14:20 Room Air 09/24/22 14:10 Oxymask 5 09/24/22 14:00 Oxymask 5 09/24/22 13:52 Oxymask 5 09/24/22 10:06 Room Air
[2022-09-24] MEDS: oxyCODONE HCL IR 5 MG TAB (IMMEDIATE RELEASE) PO PRN (17:36)
[2022-09-24] MEDS ORDERED: LANTUS PER UNIT CHARGE SQ ONE (17:45)
[2022-09-24] MEDS: INSULIN ASPART PER UNIT SC SCH ×2 (18:09→20:57)
[2022-09-24] MEDS: ACETAMINOPHEN 500 MG TAB PO PRN (19:43)
[2022-09-24] MEDS: ceFAZolin 2000MG 2,000 MG/15 ML SYR IV SCH (19:58)
[2022-09-24] MEDS ORDERED: HYDROmorphone INJ 0.5 MG/0.5 ML SYR IV STA (20:28)
[2022-09-24] MEDS: METOPROLOL TARTRATE 25 MG TAB PO SCH (20:45)
[2022-09-24] MEDS: DOCUSATE SODIUM/SENNA 50/8.6MG TAB PO SCH (20:45)
[2022-09-24] MEDS: TERAZOSIN HCL 1 MG CAP PO SCH (20:46)
[2022-09-24] MEDS: ROSUVASTATIN CALCIUM 20 MG TAB PO SCH (20:46)
[2022-09-24] MEDS: PREGABALIN 75 MG CAP PO SCH (20:47)
[2022-09-24] MEDS ORDERED: LANTUS PER UNIT CHARGE SQ SCH (21:00)
[2022-09-25] MEDS: SODIUM CHLORIDE 0.9% 1000ML 1,000 ML IV SCH (00:26)
[2022-09-25] MEDS: INSULIN ASPART PER UNIT SC SCH ×6 (00:26→21:41)
[2022-09-25] MEDS: ceFAZolin 2000MG 2,000 MG/15 ML SYR IV SCH (04:08)
[2022-09-25] MEDS: POLYETHYLENE (MIRALAX) 17 GM PACK PO SCH ×4 (04:19→21:34)
[2022-09-25 07:22] LABS: BUN Creatinine Ratio 20.7 (10-20); Creatinine Clr Calc Pharmacy 78.4 ml/min; Est GFR (African American) 103.8 ml/min; Est GFR (Non-African American) 89.6 ml/min; Potassium 3.5 mmol/L (3.5-5.1)
[2022-09-25 07:34] LABS: Hematocrit (blood only) 30.8 % (40.1-51.0); Hemoglobin 10.2 g/dl (14.0-18.0); Mean Corpuscular Hemoglobin 28.3 pg (25.0-34.0); Mean Corpuscular Hgb Conc 33.1 g/dL (32.0-36.0); Mean Corpuscular Volume 85.6 fL (80.0-100.0); Mean Platelet Volume 10.1 fL (9.4-12.4); Platelet Count 111 K/uL (130-400); RDW Coefficient of Variation 13.4 % (11.5-14.5); RDW Standard Deviation 42.1 fL (36.4-46.3); White Blood Count 4.44 K/ul (4.8-10.8)
[2022-09-25 07:52] LABS: Immature Granulocytes # (auto) 0.01 K/uL (0.00-0.02); Immature Granulocytes % (auto) 0.2 %; Lymphocytes # (auto) 0.99 K/uL (1.2-3.4); Lymphocytes % (auto) 22.3 %; Monocytes # (auto) 0.37 K/uL (0.24-0.82); Monocytes % (auto) 8.3 %; Neutrophils # (auto) 3.07 K/uL (1.4-6.5); Neutrophils % (auto) 69.2 %
[2022-09-25] MEDS ORDERED: LANTUS PER UNIT CHARGE SQ SCH (09:00)
[2022-09-25] MEDS: PREGABALIN 75 MG CAP PO SCH ×2 (09:32→21:41)
[2022-09-25] MEDS: oxyCODONE HCL IR 5 MG TAB (IMMEDIATE RELEASE) PO PRN ×2 (09:32→17:36)
[2022-09-25] MEDS: ASPIRIN 325 MG ECTAB PO SCH (09:33)
[2022-09-25] MEDS: DULoxetine HCL 30 MG CAP PO SCH (09:33)
[2022-09-25] MEDS: CHOLECALCIFEROL 1,000 UNITS 25 MCG TAB PO SCH (09:34)
[2022-09-25] MEDS: dexAMETHasone 6 MG in SYRINGE 0 ML IV SCH (09:34)
[2022-09-25] MEDS: METOPROLOL TARTRATE 25 MG TAB PO SCH ×3 (09:38→21:33)
--- NOTE | 2022-09-25 10:11 | Orthopedic Progress Note ---
Date of Service September 25, 2022 Assessment & Plan (1) Neurogenic claudication due to lumbar spinal stenosis: Plan: At this time initiate physical therapy monitor his RUTH output anticipate discharge home in the next few days. Admission and Anticipated Discharge Date Admission Date: September 24, 2022 Subjective Back pain controlled leg symptoms improved Physical Exam Physical Exam: Patient is comfortable. Is good strength testing. Results & Data ([facility]) Vital Signs (Past 12 Hours) Vital Signs Temp Pulse Resp BP BP Pulse Ox O2 Del Method 09/25/22 07:50 37.2 C 87 16 130/72 95 Room Air 09/25/22 03:15 37.2 C 86 18 93/60 L 96 Room Air 09/24/22 22:17 37.1 C 85 16 103/66 95 Room Air
[2022-09-25] MEDS ORDERED: Nursing to Pharmacy Communication SCH (11:00)
[2022-09-25] MEDS: ACETAMINOPHEN 500 MG TAB PO PRN (12:51)
--- NOTE | 2022-09-25 15:53 | Hospitalist Progress Note ---
Date of Service September 25, 2022 Assessment & Plan (1) Neurogenic claudication due to lumbar spinal stenosis: Plan: - Pain management, bowel regimen and DVT ppx per the primary team - PT/OT consults - Pre-Op HGB= 12.2, Hb dropped by 2 points, follow cbc in AM. - Pt reports pain under control and improvement in his leg symptoms. (2) CAD (coronary artery disease): Plan: - c/w asa for hx of CAD s/p triple bypass surgery (3) HTN (hypertension): Plan: - Last Echo from 11/08/21, EF 55-60%, Grade I diastolic dysfunction,Mild cLVH, Mild mitral regurgitation, Mild aortic insufficiency, Mild tricuspid regurgitation - 3V CABG on 07/24/2018 using ZHANG to LAD SVG to D1 and SVG to RCA -stress echo 09/17/22: pharmacologic, Normal nuclear part of lexiscan nuclear stress test, No evidence of ischemia or infarction, Normal LVEF and wall motion, EF 55% - Continue metoprolol tartrate 12.5, will hold lisinopril as this is ordered as needed for blood pressure as outpatient. (4) Elevated cholesterol: Plan: -continue rosuvastatin (5) Diabetes: Plan: -Last A1c was 7.4 on 09/06/2022 -ISS with Accu-Cheks ACHS -Holding alogliptin, metformin, Jardiance -Continue heart healthy diabetic diet DVT ppx: - teds, scds, no chemical anticoagulation in the setting of acute back surgery, resume asa 325 per surgery for CAD CODE: Full code Dispo: From home, likely to remain in the hospital x 1-2 days Thank you for involving us in the care of Mr. Boone If you have any questions or concerns please do not hesitate to call. At this time medicine will follow along. Admission and Anticipated Discharge Date Admission Date: September 24, 2022 Subjective Patient seen and examined at bedside as a follow-up of neurogenic claudication due to lumbar spinal stenosis status post lumbar decompression and fusion on 09/24/[address] Herman. Patient was lying in bed, on room air, reports he just worked with PT/OT, and is having little bit more pain than his fairly controlled pain postoperatively, reports eating okay, is moving gas, has not moved bowel, denies any new acute e vents overnight, reports improvement in his leg symptoms. Physical Exam Physical Exam: GENERAL: Alert and oriented x3. NAD, on RA. HEENT: No pallor, no icterus. Pupils equal, round and reactive to light. Oral mucosa moist. NECK: No JVD, no neck masses. HEART: S1 and S2 heard. Regular rate and rhythm. No murmur, no gallop. RESPIRATORY SYSTEM: Normal AP diameter. No accessory muscle use. No wheezing, no crackles. ABDOMEN: Soft, bowel sounds present, nontender, no distention. CENTRAL NERVOUS SYSTEM: No facial droop. Speech is clear. Obeys simple commands. Moves extremities. EXTREMITIES: No edema, no erythema seen. Lower back w/ clean dressing wo soakage. Results & Data Results & Data ([facility]) Vital Signs (Past 12 Hours) Vital Signs Temp Pulse Resp BP Pulse Ox O2 Del Method 09/25/22 14:22 36.6 C 129 H 16 127/70 98 Room Air 09/25/22 07:50 37.2 C 87 16 130/72 95 Room Air
[2022-09-25] MEDS: ROSUVASTATIN CALCIUM 20 MG TAB PO SCH (21:33)
[2022-09-25] MEDS: TERAZOSIN HCL 1 MG CAP PO SCH (21:33)
[2022-09-25] MEDS: DOCUSATE SODIUM/SENNA 50/8.6MG TAB PO SCH (21:33)
[2022-09-26] MEDS: POLYETHYLENE (MIRALAX) 17 GM PACK PO SCH ×3 (06:26→18:00)
[2022-09-26] MEDS: ACETAMINOPHEN 500 MG TAB PO PRN (07:58)
[2022-09-26] MEDS: oxyCODONE HCL IR 5 MG TAB (IMMEDIATE RELEASE) PO PRN ×3 (07:59→18:00)
--- NOTE | 2022-09-26 08:47 | Orthopedic Progress Note ---
Date of Service September 26, 2022 Assessment & Plan (1) Neurogenic claudication due to lumbar spinal stenosis: Plan: Gabriel is postop day 2 status post L3-5 decompression instrumented fusion. He is doing well. We will continue to work on pain control today. Continue with physical therapy. DVT prophylaxis is in the form of teds and SCDs. Maintain RUTH drain. Anticipate discharge home tomorrow. Admission and Anticipated Discharge Date Admission Date: September 24, 2022 Subjective Gabriel is postop day 2 status post lumbar decompression and instrumented fusion L3-5. Having a bit more back pain today. No radicular leg pain. RUTH drain output last shift was 60 cc. Yesterday in physical therapy ambling roughly 175 feet. He is passing flatus but no bowel movement. Review of Systems Review of Systems: All systems reviewed & are unremarkable except as noted in HPI & below Physical Exam Physical Exam: He is lying in bed in no acute Alert and oriented times Lumbar dressing is clean dry intact with functioning RUTH drain Lower extremities calf soft nontender bilateral SHANNON hose intact bilateral Strength intact bilateral lower extremities Results & Data ([facility]) Vital Signs (Past 12 Hours) Vital Signs Temp Pulse Resp BP BP Pulse Ox O2 Del Method 09/26/22 07:37 37.2 C 104 H 18 138/83 94 Room Air 09/25/22 21:55 36.5 C 114 H 18 136/73 97 Room Air
[2022-09-26] MEDS: METOPROLOL TARTRATE 25 MG TAB PO SCH ×2 (08:54→20:42)
[2022-09-26] MEDS: PREGABALIN 75 MG CAP PO SCH ×2 (08:54→20:47)
[2022-09-26] MEDS: CHOLECALCIFEROL 1,000 UNITS 25 MCG TAB PO SCH (08:54)
[2022-09-26] MEDS: ASPIRIN 325 MG ECTAB PO SCH (08:55)
[2022-09-26] MEDS: dexAMETHasone 6 MG in SYRINGE 0 ML IV SCH (08:55)
[2022-09-26] MEDS: INSULIN ASPART PER UNIT SC SCH ×4 (09:05→22:16)
[2022-09-26] MEDS: LANTUS PER UNIT CHARGE SQ SCH (09:05)
[2022-09-26 09:28] LABS: Hematocrit (blood only) 27.6 % (40.1-51.0); Hemoglobin 9.2 g/dl (14.0-18.0); Mean Platelet Volume 10.8 fL (9.4-12.4); Platelet Count 104 K/uL (130-400); White Blood Count 3.17 K/ul (4.8-10.8)
[2022-09-26 09:34] LABS: BUN Creatinine Ratio 21.3 (10-20); Creatinine Clr Calc Pharmacy 105.4 ml/min; Est GFR (African American) 117.3 ml/min; Est GFR (Non-African American) 101.2 ml/min; Magnesium 1.7 mg/dl (1.7-2.4); Potassium 3.5 mmol/L (3.5-5.1)
[2022-09-26 10:20] LABS: Mean Corpuscular Hemoglobin 28.5 pg (25.0-34.0); Mean Corpuscular Hgb Conc 33.3 g/dL (32.0-36.0); Mean Corpuscular Volume 85.4 fL (80.0-100.0); RDW Coefficient of Variation 13.2 % (11.5-14.5); RDW Standard Deviation 41.2 fL (36.4-46.3); Red Blood Count 3.23 M/uL (4.63-6.08)
[2022-09-26] MEDS: DULoxetine HCL 30 MG CAP PO SCH (11:21)
--- NOTE | 2022-09-26 13:14 | Pharmacy Report ---
Pharmacy Glycemic Short Note 2 - Date of Service September 26, 2022 - Glycemic Short BSG Results (Last 24 hours): 09/25/22 09/25/22 09/26/22 16:52 20:09 08:25 Glucose POC Glucose 239 H 196 H 120 H 09/26/22 09/26/22 08:36 12:21 Glucose 104 H POC Glucose 256 H OUTPATIENT ANTIDIABETIC REGIMEN: * Alogliptan 25mg, metformin 1000mg BID HbA1c: 7.4% (09/06/22) ASSESSMENT: 09/26 * BSGs elevated yesterday, likely related to IV dexamethasone * Will increase Lantus ~0.4 unit/kg and further tighten Novolog today * Fasting BSG of 120 mg/dL this morning * Last dose of IV dexamethasone tomorrow morning, likely discharge tomorrow 09/24 * Patient is POD #0 lumbar decompression/spinal fusion. Hx HTN, [place], CAD, skin cancer. * Dexamethasone 6mg x3 days scheduled starting tomorrow * Sugars currently slightly elevated at 171-207 * Will start basal insulin (0.2mg/kg) 15 units at bedtime and bolus insulin as below * Will also add 0000 and 0400 glucose checks for tighter control PLAN FOR INPATIENT GLYCEMIC CONTROL: * Hold outpatient oral diabetes medications * Basal insulin * Lantus 30 units SQ qAM with IV dexamethasone (~0.4 unit/kg) * Bolus insulin * NovoLog per scale ACHS or Q6hrs while NPO * Goal Range: Low 110 mg/dL - High 140 mg/dL * Correction Factor: 15 mg/dL/unit * Nutritional / Prandial insulin per carb ratio of 1 unit per 4 grams CHO consumed
[2022-09-26] MEDS ORDERED: POTASSIUM CHLORIDE CRTAB 20 MEQ TABCR PO STA (14:38)
--- NOTE | 2022-09-26 14:38 | Hospitalist Progress Note ---
Date of Service September 26, 2022 Assessment & Plan (1) Neurogenic claudication due to lumbar spinal stenosis: Plan: Acute blood loss anemia, likely anabel op - Pain management, bowel regimen and DVT ppx per the primary team - PT/OT consults - Pre-Op HGB= 12.2, Hb dropped by 3 points, follow cbc in AM. - Pt reports pain under control and improvement in his leg symptoms. - Pt w/ no chest pain or dizziness, continue to monitor. (2) CAD (coronary artery disease): Plan: - c/w asa for hx of CAD s/p triple bypass surgery (3) HTN (hypertension): Plan: - Last Echo from 11/08/21, EF 55-60%, Grade I diastolic dysfunction,Mild cLVH, Mild mitral regurgitation, Mild aortic insufficiency, Mild tricuspid regurgitation - 3V CABG on 07/24/2018 using ZHANG to LAD SVG to D1 and SVG to RCA -stress echo 09/17/22: pharmacologic, Normal nuclear part of lexiscan nuclear stress test, No evidence of ischemia or infarction, Normal LVEF and wall motion, EF 55% - Continue metoprolol tartrate 12.5, will hold lisinopril as this is ordered as needed for blood pressure as outpatient. (4) Elevated cholesterol: Plan: -continue rosuvastatin (5) Diabetes: Plan: -Last A1c was 7.4 on 09/06/2022 -ISS with Accu-Cheks ACHS -Holding alogliptin, metformin, Jardiance -Continue heart healthy diabetic diet DVT ppx: - teds, scds, no chemical anticoagulation in the setting of acute back surgery, resume asa 325 per surgery for CAD CODE: Full code Dispo: From home, likely to remain in the hospital x 1-2 days Thank you for involving us in the care of Mr. Boone If you have any questions or concerns please do not hesitate to call. At this time medicine will follow along. Admission and Anticipated Discharge Date Admission Date: September 24, 2022 Subjective Patient seen and examined at bedside as a follow-up of neurogenic claudication due to lumbar spinal stenosis status post lumbar decompression and fusion on 09/24/[address] Herman. Patient was sitting up in bed, on room air, reports he just worked with PT/OT, and has better pain control today, reports eating okay, is moving gas, has not moved bowel, denies any new acute events overnight, reports improvement in his leg symptoms. Physical Exam Physical Exam: GENERAL: Alert and oriented x3. NAD, on RA. HEENT: No pallor, no icterus. Pupils equal, round and reactive to light. Oral mucosa moist. NECK: No JVD, no neck masses. HEART: S1 and S2 heard. tachycardia. No murmur, no gallop. RESPIRATORY SYSTEM: Normal AP diameter. No accessory muscle use. No wheezing, no crackles. ABDOMEN: Soft, bowel sounds present, nontender, no distention. CENTRAL NERVOUS SYSTEM: No facial droop. Speech is clear. Obeys simple commands. Moves extremities. EXTREMITIES: No edema, no erythema seen. Lower back w/ clean dressing wo soakage. Results & Data Results & Data ([facility]) Vital Signs (Past 12 Hours) Vital Signs Temp Pulse Resp BP Pulse Ox O2 Del Method 09/26/22 07:37 37.2 C 104 H 18 138/83 94 Room Air
[2022-09-26] MEDS: TERAZOSIN HCL 1 MG CAP PO SCH (20:42)
[2022-09-26] MEDS: ROSUVASTATIN CALCIUM 20 MG TAB PO SCH (20:43)
[2022-09-26] MEDS: DOCUSATE SODIUM/SENNA 50/8.6MG TAB PO SCH (20:43)
[2022-09-26] MEDS: MAGNESIUM OXIDE 400 MG TAB PO SCH (20:43)
[2022-09-27] MEDS: oxyCODONE HCL IR 5 MG TAB (IMMEDIATE RELEASE) PO PRN ×3 (03:08→12:08)
[2022-09-27] MEDS: ACETAMINOPHEN 500 MG TAB PO PRN ×2 (05:53→15:19)
[2022-09-27] MEDS: POLYETHYLENE (MIRALAX) 17 GM PACK PO SCH ×4 (05:53→13:09)
[2022-09-27] MEDS ORDERED: DEXTROSE 50% 50 ML SYRINGE IV PRN (07:15)
[2022-09-27] MEDS ORDERED: GLUCOSE 40% GEL 15 GM TUBE PO PRN (07:15)
[2022-09-27] MEDS ORDERED: CARBOHYDRATES FOR HYPOGLYCEMIA PO PRN (07:15)
[2022-09-27] MEDS ORDERED: GLUCOSE 10 TAB/TUBE PO PRN (07:15)
[2022-09-27] MEDS ORDERED: GLUCAGON FOR INJ 1 MG VIAL IM PRN (07:15)
[2022-09-27 07:56] LABS: Hematocrit (blood only) 28.5 % (40.1-51.0); Hemoglobin 9.4 g/dl (14.0-18.0); Mean Corpuscular Hemoglobin 28.1 pg (25.0-34.0); Mean Corpuscular Volume 85.3 fL (80.0-100.0); RDW Coefficient of Variation 13.2 % (11.5-14.5); RDW Standard Deviation 41.1 fL (36.4-46.3); Red Blood Count 3.34 M/uL (4.63-6.08); White Blood Count 3.86 K/ul (4.8-10.8)
[2022-09-27 08:36] LABS: Mean Platelet Volume 10.8 fL (9.4-12.4); Platelet Count 120 K/uL (130-400)
[2022-09-27] MEDS: METOPROLOL TARTRATE 25 MG TAB PO SCH (09:10)
[2022-09-27] MEDS: MAGNESIUM OXIDE 400 MG TAB PO SCH (09:10)
[2022-09-27] MEDS: ASPIRIN 325 MG ECTAB PO SCH (09:10)
[2022-09-27] MEDS: dexAMETHasone 6 MG in SYRINGE 0 ML IV SCH (09:10)
[2022-09-27] MEDS: LANTUS PER UNIT CHARGE SQ SCH (09:17)
[2022-09-27] MEDS: PREGABALIN 75 MG CAP PO SCH (09:17)
[2022-09-27] MEDS: INSULIN ASPART PER UNIT SC SCH ×2 (09:18→12:59)
--- NOTE | 2022-09-27 11:49 | Discharge Summary ---
Date of Service September 27, 2022 Admission HPI Per Admitting Provider This is a 72-year-old male who presents with chronic persistent back and leg pain. After extensive course of nonoperative care is here for surgical intervention. Principal Diagnosis Lumbar spinal stenosis with neurogenic claudication Discharge Data Allergies Allergy/AdvReac Type Severity Reaction Status Date / Time adhesive tape Allergy Unknown unknown Verified 09/24/22 10:29 type of tape - welt carisoprodol [From Soma] Allergy Unknown pt unsure Verified 09/24/22 10:29 - doesn't remember cyclobenzaprine Allergy Unknown GI SYMPTOMS Verified 09/24/22 10:29 epinephrine Allergy Unknown SHORTNESS Verified 09/24/22 10:29 OF BREATH - see notes gemfibrozil Allergy Unknown pt doesn't Verified 09/24/22 10:29 remember gabapentin AdvReac Unknown pt doesn't Verified 09/24/22 10:29 remember ropinirole AdvReac Unknown pt doesn't Verified 09/24/22 10:29 remember Consultations 09/24/22 15:31 Consult Hospitalist Routine Procedures Performed Operation Date: 09/24/22 11:05 Actual Procedures p L3-L5 Decompression and Fusion, Spinal Cord Monitoring(Not Applicable) - Camron Herman DO Ordered Studies 09/24/22 11:05 FL lumbar spine 2-3V Routine Hospital Course (1) Neurogenic claudication due to lumbar spinal stenosis: Patient underwent lumbar decompression fusion tolerated so was taken to orthopedic for postoperative. Postop day 1 he was up and ambulating progressed to postop day #2 on postop day #3 pain was well controlled extra strength testing RUTH drain decreased probably. Socially discharged home. Discharge orders and instructions from the chart for further review. Total Time Total Time Spent Total Time Spent (In Minutes): 20 minutes Discharge Plan Discharge Items Patient Disposition: Home - Self-Care Reason For Visit: Spinal Stenosis, Lumbar Region without Neurogenic Discharge Diagnosis: Lumbar spinal stenosis with neurogenic claudication Activity: As commented below Non-emergency contact: Primary Care Provider Call non-emergency contact if: you have any medication questions Follow-up/Referrals: Ramirez Martinez DO [Primary Care Provider] - Diet: Regular Addtl Attending Provider Instructions: ACTIVITY RECOMMENDATIONS: SELF CARE INSTRUCTIONS AFTER THORACIC/LUMBAR FUSIONS 1. You may walk to your tolerance. It is good exercise for your legs and back. Expect some back and intermittent leg aches and pains. 2. You may perform "counter-top" level activities (make a sandwich, breezy with a project, etc.). 3. No bending or lifting of more than 10 pounds or back twisting of any nature (roll like a log when turning in bed). 4. You may ride in a car for 20-30 minutes at a time. No driving until after your first visit with your doctor. 5. Frequent changes of position and restricting sitting to 30 minutes at a time will help limit the amount of back spasms and stiffness you may experience. 6. You may discontinue the use of ambulatory aids (cane, crutches, etc.) once your strength and confidence allow. 7. You may chainstitch sewing machine operator the shower and let water strike your incision when you arrive home at least once daily. Do not take a tub bath, sit in a hot tub or go into a swimming pool until after your first recheck in the office. SPECIAL CARE INSTRUCTIONS: VERY IMPORTANT TO READ AND REVIEW A. Your surgical incision has been closed with a cosmetic suture under the skin that will dissolve in about 6 weeks. In 14 days, you can use a pair of clean scissors and cut the suture that is left outside of the skin at the ends of your incision. 1. The small skin tapes can be removed 7 days after surgery if they have not fallen off by that point. 2. You may keep the wound open to air as much as possible to promote healing after post-op day number 5 unless told otherwise by your doctor. 3. If you think the wound looks like it is becoming infected (redness or worsening drainage) and/or you are experiencing fever, chill or worsening back pain and muscle spasms, contact the office so that we may evaluate you as soon as possible. B. Complications are uncommon, but please contact us if you have any signs or symptoms of: 1. wound infection (fever higher than 102.5 degrees F, redness, separation of wound, drainage, or increasing pain from the incision) 2. blood clots in legs (pain, swelling, redness and warmth in legs) 3. urinary tract infection (fever higher than 102.5 degrees F, burning upon urination or increased frequency of urination) 4. nerve problems (inability to walk on your toes or heels, numbness, loss of bowel or bladder control) 5. any other symptoms that concern you C. Please call the office at if you have any concerns or questions about your operation or recovery. D. No smoking! Smoking drastically decreases the chance of a solid fusion. E. Do not take any anti-inflammatory medications (Indocin, Advil, Motrin, Aspirin, Naprosyn, etc.) as these may inhibit the chance of a solid fusion. Tylenol is okay to take for pain. MANAGING PAIN AFTER SPINAL SURGERY 1. Narcotic medication is intended for short-term use and will be provided for surgical pain. Surgical pain usually lasts for a period of 4-6 weeks. Narcotic medication includes Percocet, Vicodin, Darvocet, Tylenol #3 or Lortab. 2. Longer-term pain is more appropriately treated with non-narcotic medication such as Tylenol ES. 3. Muscle spasm is not appropriately treated with narcotics. Muscle relaxers such as Soma, Flexeril or Skelaxin can be used along with Tylenol ES. 4. Remember that we all live with some "aches and pains". This is not unusual or uncommon after an injury or as we get older. a. Back pain is expected and may include muscle spasms for 4 to 6 weeks after surgery. The pain should gradually improve. If the pain worsens for no apparent reason, please contact the office. b. Intermittent leg pain may also be experienced and should not be concerned about unless it worsens for no apparent reason. If so, please contact the office. 5. We will provide appropriate medication within the normal guidelines of their prescribed use. We will also be very cautious and aware of potential abuse and extended duration of patients' medication needs. a. Pain medications are for your comfort and to assist with sleep and rest so that the tissue can heal. They are not provided in order to return to normal activity and should not be used through the day. To do so or worsening pain at night can result from ongoing tissue damage and development of tolerance to the prescribed medicine. 6. Please allow 2-3 days to process refills. Prescriptions will not be mailed but must be picked up at the office. FOLLOW UP VISIT: Keep your scheduled follow-up appointment. Any questions, please call the office at . Pending Studies at Discharge: No Stand-Alone Forms: HYGIEIA, Smoking Cessation Medications and DC Order Prescriptions: New tramadol 50 mg tablet 50 mg PO Q6H PRN (Reason: pain, moderate) Qty: 30 0RF oxycodone 5 mg tablet 5 mg PO Q6H PRN (Reason: pain, severe) Qty: 30 0RF Continued acetaminophen [Tylenol] 325 mg capsule 500 mg PO UD PRN (Reason: Pain) Label Comments: usually take with oxycodone alogliptin [Nesina] 25 mg tablet 25 mg PO QAM aspirin [Magnus Aspirin] 325 mg tablet 325 mg PO QAM cholecalciferol (vitamin D3) 25 mcg (1,000 unit) tablet 50 mcg PO QDL coenzyme Q10 100 mg capsule 100 mg PO QAM Drizalma Sprinkle 30 mg capsule, delayed rel sprinkle 90 mg PO QDL metoprolol tartrate 25 mg tablet 12.5 mg PO BID Label Comments: i take my blood pressure medicine based on blood pressure metformin 1,000 mg tablet 1,000 mg PO BID pregabalin [Lyrica] 75 mg capsule 225 mg PO BID Label Comments: 225 mg , 1 tablet twice a day rosuvastatin 40 mg tablet 40 mg PO HS terazosin 2 mg capsule 4 mg PO HS tizanidine 2 mg capsule 2 mg PO UD PRN (Reason: Sleep) Label Comments: very rarely oxycodone 5 mg tablet 10 mg PO Q6H PRN (Reason: Pain) lisinopril 10 mg Tablet 10 mg PO UD PRN (Reason: blood pressure ) Label Comments: if blood pressure is above normal , it's as needed docusate sodium 100 mg Tablet 100 mg PO QAM Jardiance 10 mg Tablet 10 mg PO QAM Discharge Orders: Discharge Order (Routine); Ordered 09/27/22 Ordered By: Camron Herman Admission Data Admit Date/Time: 09/24/22 13:31 Attending Provider: Camron Herman Admit Provider: Camron Herman Primary Care Provider: Ramirez Martinez Other Providers: Laura Garcia ; Verito Lazar
[2022-09-27] MEDS: DULoxetine HCL 30 MG CAP PO SCH (12:57)
[2022-09-27] MEDS: CHOLECALCIFEROL 1,000 UNITS 25 MCG TAB PO SCH (12:57)
--- NOTE | 2022-09-27 14:18 | Hospitalist Progress Note ---
Date of Service September 27, 2022 Assessment & Plan (1) Neurogenic claudication due to lumbar spinal stenosis: Plan: Acute blood loss anemia, likely naabel op - Pain management, bowel regimen and DVT ppx per the primary team - PT/OT consults - Pre-Op HGB= 12.2, Hb dropped by 3 points, now stable. - Pt reports pain under control and improvement in his leg symptoms. - Pt w/ no chest pain or dizziness, continue to monitor. (2) CAD (coronary artery disease): Plan: - c/w asa for hx of CAD s/p triple bypass surgery (3) HTN (hypertension): Plan: - Last Echo from 11/08/21, EF 55-60%, Grade I diastolic dysfunction,Mild cLVH, Mild mitral regurgitation, Mild aortic insufficiency, Mild tricuspid regurgitation - 3V CABG on 07/24/2018 using ZHANG to LAD SVG to D1 and SVG to RCA -stress echo 09/17/22: pharmacologic, Normal nuclear part of lexiscan nuclear stress test, No evidence of ischemia or infarction, Normal LVEF and wall motion, EF 55% - Continue metoprolol tartrate 12.5, will hold lisinopril as this is ordered as needed for blood pressure as outpatient. (4) Elevated cholesterol: Plan: -continue rosuvastatin (5) Diabetes: Plan: -Last A1c was 7.4 on 09/06/2022 -ISS with Accu-Cheks ACHS -Holding alogliptin, metformin, Jardiance -Continue heart healthy diabetic diet DVT ppx: - teds, scds, no chemical anticoagulation in the setting of acute back surgery, resume asa 325 per surgery for CAD CODE: Full code Dispo: From home, likely to remain in the hospital x 1-2 days Thank you for involving us in the care of Mr. Boone If you have any questions or concerns please do not hesitate to call. At this time medicine will follow along. Admission and Anticipated Discharge Date Admission Date: September 24, 2022 Subjective Patient seen and examined at bedside as a follow-up of neurogenic claudication due to lumbar spinal stenosis status post lumbar decompression and fusion on 09/24/[address] Herman. Patient was sitting up in chair, on room air, reports some pain w/ relief from use of pain meds, reports eating okay, is moving gas, has not moved bowel (usual habit 2-3 days, last bm 3 days ago), denies any new acute events overnight, reports improvement in his leg symptoms. Physical Exam Physical Exam: GENERAL: Alert and oriented x3. NAD, on RA. HEENT: No pallor, no icterus. Pupils equal, round and reactive to light. Oral mucosa moist. NECK: No JVD, no neck masses. HEART: S1 and S2 heard. tachycardia. No murmur, no gallop. RESPIRATORY SYSTEM: Normal AP diameter. No accessory muscle use. No wheezing, no crackles. ABDOMEN: Soft, bowel sounds present, nontender, no distention. CENTRAL NERVOUS SYSTEM: No facial droop. Speech is clear. Obeys simple commands. Moves extremities. EXTREMITIES: No edema, no erythema seen. Lower back w/ clean dressing wo soakage. Results & Data Results & Data ([facility]) Vital Signs (Past 12 Hours) Vital Signs Temp Pulse Resp BP Pulse Ox O2 Del Method 09/27/22 08:09 36.6 C 70 18 112/60 94 Room Air
== END 2022-09-27 16:42 | disposition home or self-care (01) | DRG 454 ==
LOC: ASU 09:46 → 3N 13:31